=== PATIENT | male | born 1990 | race Two or more races ===

== ENCOUNTER 2018-04-11 21:58 | Emergency (ER) | payer OTHER ==
[~2018-04-11] VITALS: Ht 177.8 cm; Wt 102.1 kg
--- NOTE | 2018-04-11 22:03 | NUR ---
PT SUSANNE FROM HOME C/O AMS X5 DAYS, S/P BRAIN SURGERY X3 MO AGO. PT AAOX2-3, RESPIRATIONS EVEN AND UNLABORED, NO SOB, PT ON MONITOR, NAD NOTED, VSS, SAFETY PRECAUTIONS STARTED. PENDING ER PROVIDER PAM
[2018-04-11 23:00] LABS: BASOPHILS # (AUTO) 0.1 /CMM (0.0-0.2); BASOPHILS % (AUTO) 0.9 % (0.0-2.0); EOSINOPHILS % (AUTO) 5.8 % (0.0-6.0); HEMATOCRIT 43 % (39-51); HEMOGLOBIN 14.5 g/dL (13.5-17.5); LYMPHOCYTES # (AUTO) 2.9 /CMM (0.8-4.8); LYMPHOCYTES % (AUTO) 33.7 % (20.0-44.0); MEAN CORPUSCULAR HGB CONC 34 g/dl (31.0-36.0); MEAN CORPUSCULAR VOLUME 88 fL (80-96); MONOCYTES # (AUTO) 0.7 /CMM (0.1-1.30); MONOCYTES % (AUTO) 8.3 % (2.0-12.0); NEUTROPHILS # (AUTO) 4.5 /CMM (1.8-8.9); NEUTROPHILS % (AUTO) 51.3 % (43.0-81.0); PLATELET COUNT (AUTO) 253 /CMM (150-450); RED BLOOD CELL COUNT(AUTO) 4.83 MIL/uL (4.5-6.0); WHITE BLOOD COUNT (AUTO) 8.7 K/uL (4.3-11.0)
[2018-04-11 23:07] LABS: CALCIUM, SERUM 9.6 mg/dL (8.5-10.1); CARBON DIOXIDE 24 mmol/L (21-32); CHLORIDE 108 mmol/L (98-107); GLUCOSE 118 mg/dL (74-106); POTASSIUM 3.6 mmol/L (3.5-5.1); SODIUM SERUM 143 mmol/L (136-145); UREA NITROGEN, BLOOD 20 mg/dL (7-18)
[2018-04-11 23:09] LABS: ALCOHOL, BLOOD < 3 mg/dL (0-0)
--- NOTE | 2018-04-11 23:36 | NUR ---
REPORT GIVEN TO RITESH ARCE FOR [facility]
[2018-04-12] MEDS ORDERED: DEXAMETHASONE SOD PHOSPHATE 10 MG/ML VIAL ONE (00:25)
[2018-04-12] MEDS ORDERED: DEXAMETHASONE SOD PHOSPHATE 10 MG/ML VIAL IV ONE (00:30)
--- NOTE | 2018-04-12 00:47 | NUR ---
Patient is resting comfortably in bed with eyes closed. Easily aroused. VSS
--- NOTE | 2018-04-12 00:59 | NUR ---
CALLED [facility]. SPOKE TO MELY BROWNING THERE REQUESTING INFORMATION ON PATIENT AND TO HAVE OUR ER DOCTOR SPEAK TO THE PATIENTS NEUROSURGEON. HAD PT FAMILY SIGN CONSENT FORM FOR MEDICAL INFORMATION FROM [facility] TO [facility]. FAXED CONSENT FORM TO MELY BROWNING FAX:
--- NOTE | 2018-04-12 01:00 | NUR ---
CALLED [facility]. UNABLE TO REACH. WAITING FOR CALL BACK.
--- NOTE | 2018-04-12 01:37 | NUR ---
SPOKE TO MELY BROWNING AT [facility]. STATES THEY HAVE NO BEDS. CALLING PT NEUROSURGEON FOR CONSULT
--- NOTE | 2018-04-12 01:49 | NUR ---
PAGED PT NEUROSURGEON DR. CALDERON @ 0150. PHONE NUMBER:
--- NOTE | 2018-04-12 02:01 | NUR ---
Cecilio acuna in [facility] - 04/12/18 at 0201 by MERLYN JOYCE JAY, WILL BE HERE IN 30 MIN FOR EVAL.
--- NOTE | 2018-04-12 02:43 | NUR ---
DR PIMENTEL SPEAKING WITH DR MIX.
--- NOTE | 2018-04-12 03:05 | NUR ---
CALLED [facility] TO REQUEST HIGHER LEVEL OF CARE. WAITING FOR CALL BACK.
--- NOTE | 2018-04-12 03:18 | NUR ---
SPOKE WITH [facility]. NO BEDS AVAILABLE AT [facility] AND [facility]. SAID CALL BACK AGAIN AT 9AM TO TRY AGAIN.
--- NOTE | 2018-04-12 03:24 | NUR ---
CALLED [facility] TRANSFER LINE. STATED "CALL [facility] FIRST AND IF THEY DONT HAVE BEDS CALL US BACK"
--- NOTE | 2018-04-12 03:43 | NUR ---
CALLED [facility] TRANSFER REQUESING BED FOR PT. GOING TO FAX PT INFORMATION AND SAID "THEY WILL PRESENT THE CASE UPON RECEIVING CLINICALS" [facility] TRANSFER FAX:
--- NOTE | 2018-04-12 04:00 | NUR ---
FAXED CLINICALS TO [facility] TRANSFER
--- NOTE | 2018-04-12 04:26 | NUR ---
CALLED [facility]. SPOKE TO ER CHARGE NURSE WHO IS HANDLING CASE MANAGEMENT. HAD PRESENT CASE TO THEIR ER DOCTOR, DR. CARTER. DR. CARTER SAID WILL PRESENT THE CASE TO THEIR NEUROSURGEON.
--- NOTE | 2018-04-12 04:29 | NUR ---
JAVIER FROM [facility] STATES "WE DONT HAVE ANY ICU BEDS AVAILABLE, HAVE ICU PATIENTS IN THE ER, AND WONT BE ABLE TO ACCEPT."
--- NOTE | 2018-04-12 04:30 | NUR ---
DR. PIMENTEL SPEAKING TO [facility] TRANSFER DOCTOR PRESENTING CASE
--- NOTE | 2018-04-12 04:34 | NUR ---
PT ACCEPTED AT [facility]. WAITING FOR CALL FOR TRANSFER INFORMATION.
--- NOTE | 2018-04-12 04:48 | NUR ---
RECEIVED TRANSFER INFORMATION FROM [facility]. PT GOING TO: [facility] 6-ICU BED:[id number] MARKELL BARCENAS RN GIVE REPORT TO
--- NOTE | 2018-04-12 04:54 | NUR ---
CALLED [facility] FOR [facility] TRANSPORT TO [facility]. ETA: [id number] RUN #: [id number]
--- NOTE | 2018-04-12 05:52 | NUR ---
GAVE REPORT TO CLOTH BALERRITESH LARA AT [facility] FOR [facility]. RN GAVE NEW PHONE #:
--- NOTE | 2018-04-12 08:00 | NUR ---
NEW ETA FOR [id number] [id number].
--- NOTE | 2018-04-12 08:12 | NUR ---
PT RESTING COMFORTABLY IN BED, RESPIRATIONS EVEN AND UNLABORED, NO SOB, PT ON MONITOR, NAD NOTED, VSS, on safety precaution.
[2018-04-12 08:15] VITALS: BP 121/72
--- NOTE | 2018-04-12 08:16 | NUR ---
report given to the paramedics by Anai Mandujano RN
--- NOTE | 2018-04-12 08:19 | NUR ---
PICKED UP BY [facility] UNIT 520, PT WILL BE BROUGHT TO [facility], ICU BED 6.
== END 2018-04-12 08:27 | disposition short-term general hospital (02) ==
LOC: ER 21:59
DX: G93.40 Encephalopathy, unspecified (principal); G91.9 Hydrocephalus, unspecified; G93.6 Cerebral edema; Z85.841 Personal history of malignant neoplasm of brain
CPT/HCPCS: 36415; 70450; 71045; 80048; 80305; 80307; 85025; 96374; 99285; A4606; J1100; G0480